=== PATIENT | female | born 1985 | race Two or more races ===

== ENCOUNTER 2018-11-17 08:01 | Inpatient (IN) | payer MEDICAID ==
[~2018-11-17] VITALS: Ht 154.9 cm; Wt 69.5 kg
[2018-11-17 08:08] VITALS: Ht 154.9 cm; Wt 69.5 kg
[2018-11-17 08:09] VITALS: BP 135/80; PULSE 96; RESP 20
[2018-11-17] MEDS ORDERED: LACTATED RINGER'S 1,000 ML IV PRN (08:11)
[2018-11-17] MEDS: LACTATED RINGER'S 1,000 ML IV SCH ×2 (08:21→11:50)
[2018-11-17] MEDS ORDERED: CARBOPROST 250 MCG INJ IM PRN ×2 (08:30→14:30)
[2018-11-17] MEDS ORDERED: OXYCODONE/ASPIRIN (4.88/325) TAB PO PRN ×2 (08:30→14:30)
[2018-11-17] MEDS ORDERED: METHYLERGONOVINE 0.2 MG INJ IM PRN ×2 (08:30→14:30)
[2018-11-17] MEDS ORDERED: OXYTOCIN 30 UNITS/LR 500 ML IV SCH ×3 (08:30→14:17)
[2018-11-17] MEDS ORDERED: BUTORPHANOL 2 MG INJ IV PRN (08:30)
[2018-11-17] MEDS ORDERED: LIDOCAINE 1% (MPF) 30 ML INJ INJ PRN (08:30)
[2018-11-17] MEDS ORDERED: MISOPROSTOL 200 MCG TAB PR PRN ×2 (08:30→14:30)
[2018-11-17] MEDS ORDERED: OXYTOCIN 30 UNITS/LR 500 ML IV PRN ×2 (08:30→14:30)
[2018-11-17] MEDS ORDERED: MINERAL OIL LIGHT 10 ML VIAL TOP PRN (08:30)
[2018-11-17] MEDS ORDERED: IBUPROFEN 600 MG TAB PO PRN (08:30)
[2018-11-17] MEDS: DEXTROSE 5%-LR 1,000 ML IV SCH ×2 (14:17→22:17)
[2018-11-17 14:18] VITALS: BP 111/59; PULSE 89; RESP 16
[2018-11-17] MEDS ORDERED: DIBUCAINE 1% 30 GM OINT TOP PRN (14:30)
[2018-11-17] MEDS ORDERED: ZOLPIDEM 5 MG TAB PO PRN (14:30)
[2018-11-17] MEDS ORDERED: DIPHENHYDRAMINE 50 MG INJ IV PRN (14:30)
[2018-11-17] MEDS ORDERED: ONDANSETRON 4 MG INJ IV PRN (14:30)
[2018-11-17] MEDS ORDERED: WITCH HAZEL/GLYCERIN PAD PR PRN (14:30)
[2018-11-17] MEDS ORDERED: ACETAMINOPHEN 325 MG TAB PO PRN ×2 (14:30)
[2018-11-17] MEDS ORDERED: LANOLIN HPA 1 PKT TOP PRN (14:30)
[2018-11-17] MEDS ORDERED: BENZOCAINE 20% 56 ML SPRAY TOP PRN (14:30)
[2018-11-17] MEDS ORDERED: SENNA/DOCUSATE NA (8.6MG/50MG) TAB PO PRN (14:30)
[2018-11-17 16:00] VITALS: BP 97/50; PULSE 89; RESP 16
[2018-11-17] MEDS: LACTATED RINGER'S 1,000 ML IV* SCH ×2 (16:37→22:17)
[2018-11-17] MEDS: IBUPROFEN 600 MG TAB PO SCH (18:41)
[2018-11-17 20:00] VITALS: BP 95/53; PULSE 90; RESP 18
[2018-11-18] MEDS: IBUPROFEN 600 MG TAB PO SCH ×5 (00:06→23:29)
[2018-11-18 00:10] VITALS: BP 98/54; PULSE 91; RESP 18
[2018-11-18 03:30] VITALS: BP 100/52; PULSE 64; RESP 18
--- NOTE | 2018-11-18 03:52 | HP ---
Date/Time of Note Date/Time of Note DATE: 11/18/18 TIME: 03:49 OB - History Hx of Present Free Text/Dictation Late entry note. Patient seen on 11/17/2018 33 years old 3 para 2-0-0-2 with single intrauterine at 40 weeks and 1 day with a MALDONADO of 11/16/2018 complaining of uterine contractions. She states good movement. She denies nausea, vomiting, shortness of breath, chest pain, headache, visual changes, vaginal bleeding or LOF. Chief Complaint: Uterine contractions Estimated Due Date: November 16, 2018 : 3 Para: 2 Spontaneous : 0 Therapeutic : 0 Care: Good Care Ultrasounds: Normal mid trimester US Obstetrical Complications: None Medical Complications: None Past Family/Social History * Past Medical, Surgical, Family and Obstetric Histories reviewed from chart. Blood Type: A+ Rubella: immune RPR/VDRL: Negative GBS Status: Negative HBsAG: Negative OB Admission Exam Vital Signs Vital Signs Vital Signs Date Temp Pulse Resp B/P (MAP) Pulse Ox O2 O2 Flow FiO2 Time Delivery Rate 11/18/18 98.1 64 18 100/52 Room Air 03:30 (68) Physical Exam HEENT: WNL Heart: Rhythm Normal Lungs: Clear Abdomen: WNL Extremities: Normal Cervical Dilatation: 6cm Effacement: 75% Station: -2 Membranes: Intact Heart Rate: 130's Accelerations: Accelerations Present Decelerations: No Decelerations Varibility: Moderate Contractions on Admission: < 5 Minutes Apart Intensity: Moderate Last 72 hours Lab Results CBC & BMP 11/17/18 08:00 OB Assessment/Plan Other plan: 33 years old -0-0-2 with single intrauterine at 40 weeks and 1day in active labor -FHR: No sign of metabolic acidosis- Category I -Continuous EFM, toco -CBC, blood type and screen -Analgesia options with R/B/A discussed in detail with patient -Epidural per patient request -Please see the orders -A+/Rubella: Immune -GBS: Negative Admission, procedures, expectations, risks and possible complications have been discussed in detail with the patient. Risk of vaginal delivery including but not limited to bleeding, infection, cervical laceration, placental retention, injury to fetus, blood transfusion, blood transfusion related infection, risk of anesthesia, adhesion, cervical laceration, episiotomy/laceration, possible delivery with risk of bleeding, infection, injury to other organs (bowel, bladder, ureter, vessels, nerves), injury to fetus, blood transfusion, blood transfusion related infection, risk of anesthesia, scar and hernia formation, needs for future , removal of uterus or any other indicated surgery discussed with the patient. She expressed understanding and repeats the risks. All of her questions were answered. She signed the informed consent. PHYSICIAN'S VERIFICATION OF INFORMED CONSENT The patient was counseled regarding the procedure, its indications, risks, potential complications and alternatives and any questions were answered. Consent was obtained. PLANNED PROCEDURE/TREATMENT: Vaginal delivery, episiotomy, repair of laceration possible delivery SHILPA MARTINEZ November 18, 2018 03:52
--- NOTE | 2018-11-18 03:56 | LDN ---
Date/Time of Note Date/Time of Note DATE: 11/18/18 TIME: 03:52 Delivery Summary Late entry note. Patient delivered at 12:42 at 11/17/2018 33 years old -0-0-2 with single intrauterine at 40 weeks and 1 day delivered a viable male at 12:14 on 11/17/2018. Nose and mouth suctioned. Rest of body delivered. Baby given to the nurse. Placenta delivered intact and spontaneously with three-vessel cord. Patient tolerated procedure well Weight 4340 g - 9 pound 9 ounces 8 at 1 minutes and 9 at 5 minutes EBL 300 mL Weeks of Gestation 40 weeks and 1 day Placenta Delivered: Spontaneously Episiotomy: No Estimated blood loss: 300 Sponge & Needle done & correct: Yes All needle counts correct: Yes Any foreign bodies felt in the: No Delivery Information Sex Sex: male Apgars 1 Minute: 8 5 Minute: 9 10 Minute: 10 Suctioning Nose & mouth suctioned at neris: Yes Umbilical Cord Umbilical cord with: 3 Vessels Cord Blood was obtained: Yes Mother & Baby Disposition Disposition Mom & Baby to Maternity; Good: Yes SHILPA MARTINEZ November 18, 2018 03:56
[2018-11-18] MEDS: DEXTROSE 5%-LR 1,000 ML IV SCH ×3 (06:17→22:17)
[2018-11-18] MEDS: LACTATED RINGER'S 1,000 ML IV* SCH ×3 (06:17→22:17)
[2018-11-18 08:30] VITALS: BP 96/62; PULSE 66; RESP 18
--- NOTE | 2018-11-18 11:17 | DS ---
Date/Time of Note Date/Time of Note DATE: 11/18/18 TIME: 11:15 Discharge Summary Admission/Discharge Info Admit Date/Time November 17, 2018 at 08:03 Discharge Date/Time Discharge Diagnosis term Patient Condition: Stable Hospital Course unremarkable Primary Care Provider Not On Staff Doctor Pending Labs Laboratory Tests Test 11/18/18 06:13 11/18/18 07:53 Lab Scanned Report [facility] [id number] White Blood Count 15.0 10^3/ul (4.8-10.8) Red Blood Count 3.40 10^6/ul (4.20-5.40) Hemoglobin 10.0 g/dl (12.0-16.0) Hematocrit 30.8 % (37.0-47.0) Mean Corpuscular Volume 90.6 fl (82.0-101.0) Mean Corpuscular Hemoglobin 29.4 pg (29.0-33.0) Mean Corpuscular 32.5 g/dl (32.0-37.0) Hemoglobin Concent Red Cell Distribution Width 14.7 % (11.5-14.5) Platelet Count 141 10^3/UL (140-415) Mean Platelet Volume 12.1 fl (7.4-10.4) Immature Granulocytes % 0.500 % (0.001-0.429) Neutrophils % 76.4 % (39.0-77.0) Lymphocytes % 17.0 % (15.0-51.0) Monocytes % 5.9 % (0.0-11.0) Eosinophils % 0.1 % (0.0-7.0) Basophils % 0.1 % (0.0-2.0) Nucleated Red Blood Cells % 0.0 /100WBC (0.0-0.0) Immature Granulocytes # 0.070 10^3/ul (0.0-0.031) Neutrophils # 11.5 10^3/ul (1.6-7.5) Lymphocytes # 2.5 10^3/ul (0.8-2.9) Monocytes # 0.9 10^3/ul (0.3-0.9) Eosinophils # 0.0 10^3/ul (0.0-0.5) Basophils # 0.0 10^3/ul (0.0-0.1) Nucleated Red Blood Cells # 0.0 10^3/ul (0.0-0.0) ANDREINA BALTAZAR MD November 18, 2018 11:17
[2018-11-18 17:13] VITALS: BP 94/59; PULSE 74; RESP 18
[2018-11-18 20:15] VITALS: BP 97/52; PULSE 79; RESP 18
[2018-11-19 03:58] VITALS: BP 105/51; PULSE 70; RESP 18
[2018-11-19] MEDS: DEXTROSE 5%-LR 1,000 ML IV SCH (05:58)
[2018-11-19] MEDS: LACTATED RINGER'S 1,000 ML IV* SCH (05:59)
[2018-11-19] MEDS: IBUPROFEN 600 MG TAB PO SCH (06:00)
[2018-11-19 08:00] VITALS: BP 99/60; PULSE 75; RESP 18
[2018-11-19] MEDS ORDERED: DIPHTH/TET/ACEL PERTUSS (ADULT) 0.5 ML VIAL IM* ONE (09:00)
[2018-11-19] MEDS ORDERED: MEASLES,MUMPS,RUBELLA VACCINE INJ SC* ONE (09:00)
--- NOTE | 2018-11-20 14:25 | DELSUM ---
Delivery Summary A-C Datetime Report Generated by CPN: 11/20/2018 14:24 DELIVERY PERSONNEL Animal Behaviourist: [place], May MATERNAL INFORMATION Delivery Anesthesia: None Medications in Delivery: pitocin 30 units Delivery QBL (ml): 300 Placenta Cultured: No Maternal Complications: Other LABOR SUMMARY EDC: 11/16/2018 00:00 No. Babies in Womb: 1 Attempted: No Labor Anesthesia: None LABOR INFORMATION Reason for Induction: Not Applicable Onset of Labor: 11/17/2018 02:00 Complete Dilatation: 11/17/2018 11:48 Oxytocin: N/A Group B Beta Strep: Negative Antibiotics # of Doses: 0 Steroids Given: None Reason Steroids Not Administered: Not Applicable MEMBRANES Membranes Rupture Method: Artificial Rupture of Membranes: 11/17/2018 10:57 Length of Rupture (hr): 1.28 Amniotic Fluid Color: Clear Amniotic Fluid Amount: Moderate STAGES OF LABOR Stage 1 hr: 7 Stage 1 min: 48 Stage 2 hr: 0 Stage 2 min: 26 Stage 3 hr: 0 Stage 3 min: 4 Total Time in Labor hr: 8 Total Time in Labor min: 18 VAGINAL DELIVERY Episiotomy: None Laceration Extension: N/A Laceration Type: None Laceration Repair: No Initial Vag Sponge Count: 10 Final Vag Sponge Count: 10 Initial Vag Sharps Count: 1 Final Vag Sharps Count: 1 Sponge Count Correct: Yes; Vaginal Sweep Performed Sharps Count Correct: N/A BABY A INFORMATION Delivery Date/Time: 11/17/2018 12:14 Method of Delivery: Vaginal Born in Route : No : N/A Forceps: N/A Vacuum Extraction: N/A Shoulder Dystocia : N/A SHOULDER DYSTOCIA BABY A Delivery Date/Time: 11/17/2018 12:14 PRESENTATION/POSITION BABY A Presentation: Cephalic Cephalic Presentation: Vertex Vertex Position: Left Occipital Posterior Breech Presentation: N/A PLACENTA INFORMATION BABY A Placenta Delivery Time : 11/17/2018 12:18 Placenta Method of Delivery: Spontaneous Placenta Status: Delivered SCORES BABY A Heart Rate 1 min: >100 bpm Resp Effort 1 min: Good Cry Reflex Irritability 1 min: Cough/Sneeze/Pulls Away Muscle Tone 1 min: Active Motion Color 1 min: Blue/Pale Resuscitation Effort 1 min: Tactile Stimulation SCORE 1 MIN: 8 Heart Rate 5 min: >100 bpm Resp Effort 5 min: Good Cry Reflex Irritability 5 min: Cough/Sneeze/Pulls Away Muscle Tone 5 min: Active Motion Color 5 min: Body Mine [place], Extremit Blue Resuscitation Effort 5 min: Tactile Stimulation SCORE 5 MIN: 9 INFANT INFORMATION BABY A Gestational Age at Delivery: 40.1 Gestational Status: Full Term- 39- 40.6 Weeks Outcome : Liveborn Condition : Stable Infant Sex: Male IDENTIFICATION/MEDS BABY A ID Band Number: [id number] ID Band Location: Right Leg; Left Arm Sensor Applied: Yes Sensor Number: [id number] Sensor Location : Cord Clamp Vitamin K Given : Not Given Erythromycin Given: Not Given WEIGHT/LENGTH BABY A Infant Birthweight (gm): 4340 Weight (lb): 9 Weight (oz): 9 Length (in): 21.00 Length (cm): 53.34 CORD INFORMATION BABY A No. 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
== END 2018-11-19 14:24 | disposition home or self-care (01) | DRG 807 ==
LOC: OBT 08:01 → L-D 08:03 → PP1 13:48
PROVIDERS: ADMIT Obstetrics & Gynecology; ATTEND Obstetrics & Gynecology
PROC: 10E0XZZ Delivery of Products of Conception, External Approach (ICD-10-PCS; principal; 2018-11-18)
DX: O48.0 Post-term pregnancy (principal); Z37.0 Single live birth; Z3A.40 40 weeks gestation of pregnancy
CPT/HCPCS: 85025; 85610; 85730; 86592; 86850; 86900; 86901; 87340; J0595; J2590; J7120; J7121